=== PATIENT | female | born 1995 | race Caucasian/White ===

== ENCOUNTER 2017-04-02 12:35 | Emergency (ER) | payer OTHER ==
[~2017-04-02] VITALS: Ht 167.6 cm; Wt 68.2 kg
[2017-04-02 12:40] VITALS: TEMP 98
[2017-04-02] MEDS ORDERED: SPRINTEC 35 MCG1 TAB PO (12:43)
[2017-04-02 13:29] LABS: PH 6 (5-8); URINE APPEARANCE Cloudy; URINE BACTERIA None Seen /hpf; URINE BILIRUBIN Negative (NEGATIVE); URINE BLOOD 3+ (NEGATIVE); URINE COLOR Yellow; URINE GLUCOSE Negative (NEGATIVE); URINE KETONE Negative (NEGATIVE); URINE RBC >50 /hpf; URINE UROBILINOGEN Negative (NEGATIVE); URINE WBC None Seen /hpf
[2017-04-02 13:36] LABS: BASO % 0.8 % (0.0-2.0); EOS % 0.8 % (0-4.0); GRAN # 3.1 (1.4-6.5); GRAN % 59.2 % (42.2-75.2); HEMATOCRIT 42.1 % (37.0-47.0); HEMOGLOBIN 13.4 g/dl (12.5-16.0); LYMPH # 1.7 (1.2-3.4); LYMPH % 33.1 % (20.0-51.0); MEAN CELL VOLUME 87 fl (80.0-100.0); MEAN CORPUSCULAR HEMOGLOBIN 28 pg (27.0-31.0); MEAN CORPUSCULAR HGB CONC 32 g/dl (33.0-37.0); MONO # 0.3 (0.1-0.6); MONO % 5.7 % (1.7-9.3); PLATELET COUNT 332 K/mm3 (130-400); RED BLOOD COUNT 4.83 M/mm3 (4.10-5.30); REDCELL DISTRIBUTION WIDTH-CV 13.6 % (11.5-14.5); WHITE BLOOD COUNT 5.3 K/mm3 (4.8-10.8)
[2017-04-02 13:48] LABS: ADJUSTED CALCIUM 9.4 mg/dL (8.4-10.2); ALBUMIN 4.4 gm/dL (3.5-5.0); BILIRUBIN,TOTAL 0.5 mg/dL (0.0-1.0); C-REACTIVE PROTEIN 1.3 mg/dL (0.0-0.9); CALCIUM 9.7 mg/dL (8.4-10.2); CREATININE, serum 0.8 mg/dL (0.52-1.25); POTASSIUM 3.8 mmol/L (3.4-5.0)
[2017-04-02] MEDS ORDERED: ZOFRAN ODT4 MG PO (15:46)
[2017-04-02] MEDS ORDERED: NORCO 325 MG-51 TAB PO (15:46)
[2017-04-02 16:34] VITALS: BP 110/64; PULSE 88
== END 2017-04-02 16:35 | disposition home or self-care (01) ==
LOC: COL.ER 12:35
PROVIDERS: Physician Assistant
DX: R10.31 Right lower quadrant pain (principal); R10.11 Right upper quadrant pain
CPT/HCPCS: J1170; J1885; J2060; J2270; J2405; J7030; Q9967

== ENCOUNTER 2017-07-25 11:26 | Inpatient (IN) | payer OTHER ==
[~2017-07-25] VITALS: Ht 167.6 cm; Wt 71.2 kg
[~2017-07-25 11:26] MED LIST: NORCO 325 MG-51 TAB PO; SPRINTEC 35 MCG1 TAB PO; ZOFRAN ODT4 MG PO
[2017-07-25 13:13] LABS: BASO % 0.3 % (0.0-2.0); EOS # 0.1 (0.0-0.7); EOS % 1.1 % (0-4.0); GRAN # 5.4 (1.4-6.5); GRAN % 74.8 % (42.2-75.2); HEMATOCRIT 42.9 % (37.0-47.0); LYMPH # 1.2 (1.2-3.4); LYMPH % 16.9 % (20.0-51.0); MEAN CELL VOLUME 86 fl (80.0-100.0); MEAN CORPUSCULAR HEMOGLOBIN 28 pg (27.0-31.0); MEAN CORPUSCULAR HGB CONC 33 g/dl (33.0-37.0); MEAN PLATELET VOLUME 9.5 fl (7.4-10.4); MONO # 0.5 (0.1-0.6); MONO % 6.5 % (1.7-9.3); PLATELET COUNT 270 K/mm3 (130-400); RED BLOOD COUNT 5.02 M/mm3 (4.10-5.30); REDCELL DISTRIBUTION WIDTH-CV 14.7 % (11.5-14.5)
[2017-07-25 13:35] LABS: ALBUMIN 4.6 gm/dL (3.5-5.0); BILIRUBIN,TOTAL 0.5 mg/dL (0.0-1.0); CALCIUM 9.9 mg/dL (8.4-10.2); CREATININE, serum 0.92 mg/dL (0.52-1.25); POTASSIUM 3.9 mmol/L (3.4-5.0); TOTAL PROTEIN 8.1 gm/dL (6.4-8.2)
[2017-07-25 14:45] LABS: INR 1.1 (0.8-3.0); PROTHROMBIN TIME 12.6 SECONDS (9.7-12.8)
[2017-07-25 14:48] LABS: PARTIAL THROMBOPLASTIN TIME 28.7 SECONDS (26.0-37.0)
[2017-07-25 16:18] VITALS: BP 116/62; PULSE 93; TEMP 98.3
[2017-07-25 19:41] VITALS: BP 120/49; PULSE 104; TEMP 98.5
[2017-07-26] VITALS (7 sets, daily range): BP systolic 102–124; BP diastolic 50–72; PULSE 67–101; TEMP 97.5–98.5
[2017-07-27 05:08] VITALS: BP 117/61; PULSE 85; TEMP 98.3
[2017-07-27 06:53] LABS: MEAN CELL VOLUME 85 fl (80.0-100.0); MEAN CORPUSCULAR HGB CONC 34 g/dl (33.0-37.0); MEAN PLATELET VOLUME 9.4 fl (7.4-10.4); PLATELET COUNT 198 K/mm3 (130-400); RED BLOOD COUNT 3.72 M/mm3 (4.10-5.30); REDCELL DISTRIBUTION WIDTH-CV 14.9 % (11.5-14.5)
[2017-07-27 06:54] LABS: HEMATOCRIT 31.7 % (37.0-47.0); HEMOGLOBIN 10.7 g/dl (12.5-16.0); MEAN CORPUSCULAR HEMOGLOBIN 29 pg (27.0-31.0)
[2017-07-27 08:25] VITALS: BP 120/57; PULSE 80; TEMP 98.6
[2017-07-27 11:24] VITALS: BP 119/60; PULSE 81; TEMP 98.4
[2017-07-27 15:27] VITALS: BP 112/59; PULSE 80; TEMP 98.3
[2017-07-27 20:38] VITALS: BP 124/56; PULSE 78; TEMP 98.6
[2017-07-28] VITALS (18 sets, daily range): BP systolic 107–139; BP diastolic 45–98; PULSE 63–105; TEMP 97–98.7
[2017-07-28 02:17] LABS: BASO % 0.8 % (0.0-2.0); EOS # 0.2 (0.0-0.7); EOS % 3.2 % (0-4.0); GRAN # 2.4 (1.4-6.5); GRAN % 47.8 % (42.2-75.2); HEMATOCRIT 33.5 % (37.0-47.0); HEMOGLOBIN 10.9 g/dl (12.5-16.0); LYMPH # 1.9 (1.2-3.4); LYMPH % 38.2 % (20.0-51.0); MEAN CELL VOLUME 86 fl (80.0-100.0); MEAN CORPUSCULAR HEMOGLOBIN 28 pg (27.0-31.0); MEAN CORPUSCULAR HGB CONC 33 g/dl (33.0-37.0); MEAN PLATELET VOLUME 9.3 fl (7.4-10.4); MONO # 0.5 (0.1-0.6); MONO % 9.6 % (1.7-9.3); PLATELET COUNT 205 K/mm3 (130-400); RED BLOOD COUNT 3.91 M/mm3 (4.10-5.30); REDCELL DISTRIBUTION WIDTH-CV 14.8 % (11.5-14.5)
[2017-07-28 02:21] LABS: INR 1.1 (0.8-3.0); PROTHROMBIN TIME 12.5 SECONDS (9.7-12.8)
[2017-07-28 02:23] LABS: CALCIUM 8.9 mg/dL (8.4-10.2); CREATININE, serum 0.78 mg/dL (0.52-1.25); PARTIAL THROMBOPLASTIN TIME 88.4 SECONDS (26.0-37.0); POTASSIUM 3.4 mmol/L (3.4-5.0)
[2017-07-29 02:51] VITALS: BP 127/63; PULSE 84; TEMP 98.3
[2017-07-29 06:30] LABS: BASO % 0.7 % (0.0-2.0); EOS # 0.1 (0.0-0.7); EOS % 3.1 % (0-4.0); GRAN # 2.7 (1.4-6.5); GRAN % 59.8 % (42.2-75.2); LYMPH # 1.2 (1.2-3.4); LYMPH % 26.2 % (20.0-51.0); MEAN CELL VOLUME 85 fl (80.0-100.0); MEAN CORPUSCULAR HGB CONC 33 g/dl (33.0-37.0); MEAN PLATELET VOLUME 9.5 fl (7.4-10.4); MONO # 0.4 (0.1-0.6); MONO % 9.8 % (1.7-9.3); PLATELET COUNT 180 K/mm3 (130-400); REDCELL DISTRIBUTION WIDTH-CV 14.7 % (11.5-14.5)
[2017-07-29 06:35] LABS: HEMATOCRIT 32.3 % (37.0-47.0); HEMOGLOBIN 10.5 g/dl (12.5-16.0); MEAN CORPUSCULAR HEMOGLOBIN 28 pg (27.0-31.0)
[2017-07-29 06:51] LABS: CALCIUM 8.4 mg/dL (8.4-10.2); CREATININE, serum 0.83 mg/dL (0.52-1.25); POTASSIUM 3.6 mmol/L (3.4-5.0)
[2017-07-29 08:34] VITALS: BP 122/55; PULSE 108; TEMP 97.7
[2017-07-29] MEDS ORDERED: ELIQUIS 5MG PO (08:35)
[2017-07-29] MEDS ORDERED: NORCO 325 MG-51 TAB PO (08:35)
[2017-07-29 12:09] VITALS: BP 113/56; PULSE 68; TEMP 98.6
[2017-07-30] MEDS ORDERED: TYLENOL 500MG500 MG PO (17:11)
== END 2017-07-29 14:23 | disposition home or self-care (01) | DRG 271 ==
LOC: COL.ER 11:26 → MEDICAL 14:39
PROVIDERS: Emergency Medicine; Family Medicine; Physician Assistant; Radiology Diagnostic Radiology
PROC: 04CD3ZZ Extirpation of Matter from Left Common Iliac Artery, Percutaneous Approach (ICD-10-PCS; principal; 2017-07-28)
PROC: 047J3ZZ Dilation of Left External Iliac Artery, Percutaneous Approach (ICD-10-PCS; 2017-07-28)
PROC: 047D3DZ Dilation of Left Common Iliac Artery with Intraluminal Device, Percutaneous Approach (ICD-10-PCS; 2017-07-28)
DX: I82.422 Acute embolism and thrombosis of left iliac vein (principal); I87.1 Compression of vein; F41.9 Anxiety disorder, unspecified; D64.9 Anemia, unspecified; R01.1 Cardiac murmur, unspecified
CPT/HCPCS: 99231-AI; 99232-AI; 99239; G0378; J1170; J1644; J1650; J2060; J2250; J2405; J2704; J2765; J2997; J3010; J7030; J7120; Q9967

== ENCOUNTER → 2017-07-30 | Emergency (ER) | payer OTHER ==
[~2017-07-30] VITALS: Ht 167.6 cm; Wt 72.3 kg
[~2017-07-30] MED LIST changes: +ELIQUIS 5MG PO; +TYLENOL 500MG500 MG PO
[2017-07-30 16:32] LABS: BASO % 0.4 % (0.0-2.0); EOS # 0.2 (0.0-0.7); EOS % 2.6 % (0-4.0); GRAN # 1.9 (1.4-6.5); LYMPH # 4.4 (1.2-3.4); LYMPH % 62.5 % (20.0-51.0); MEAN CORPUSCULAR HGB CONC 31 g/dl (33.0-37.0); MEAN PLATELET VOLUME 9.3 fl (7.4-10.4); MONO # 0.4 (0.1-0.6); MONO % 6.1 % (1.7-9.3); PLATELET COUNT 250 K/mm3 (130-400); RED BLOOD COUNT 3.68 M/mm3 (4.10-5.30); REDCELL DISTRIBUTION WIDTH-CV 14.5 % (11.5-14.5)
[2017-07-30 16:38] LABS: HEMATOCRIT 33.2 % (37.0-47.0); HEMOGLOBIN 10.4 g/dl (12.5-16.0); MEAN CELL VOLUME 90 fl (80.0-100.0); MEAN CORPUSCULAR HEMOGLOBIN 28 pg (27.0-31.0)
[2017-07-30 16:42] LABS: ALANINE AMINOTRANSFERASE 238 U/L (9-52); ALBUMIN 2.9 gm/dL (3.5-5.0); ALKALINE PHOSPHATASE 109 U/L (50-136); ANION GAP 15 mmol/L (7-16); AST,SGOT 294 U/L (15-37); BILIRUBIN,TOTAL 0.2 mg/dL (0.0-1.0); BLOOD UREA NITROGEN 9 mg/dL (7-17); CALCIUM 8.1 mg/dL (8.4-10.2); CARBON DIOXIDE 18 mmol/L (22-30); CHLORIDE 106 mmol/L (98-107); CREATININE, serum 1.02 mg/dL (0.52-1.25); GLUCOSE 240 mg/dL (74-106); LIPASE 188 U/L (23-300); SODIUM 139 mmol/L (137-145); TOTAL PROTEIN 5.6 gm/dL (6.4-8.2)
[2017-07-30 16:44] LABS: ALCOHOL(ethanol),MEDICAL < 10 mg/dL; POTASSIUM 2.9 mmol/L (3.4-5.0)
[2017-07-30 16:45] LABS: INR 1.3 (0.8-3.0)
[2017-07-30 17:26] LABS: COLLECTION METHOD CLEAN CATCH
[2017-07-30 17:32] LABS: PH 7 (5-8); SQUAMOUS EPITHELIAL 0-2 /hpf; URINE APPEARANCE Clear; URINE BACTERIA None Seen /hpf; URINE BILIRUBIN Negative (NEGATIVE); URINE BLOOD 2+ (NEGATIVE); URINE COLOR Straw; URINE GLUCOSE 1+ (NEGATIVE); URINE KETONE Negative (NEGATIVE); URINE LEUKOCYTE ESTERASE Negative (NEGATIVE); URINE NITRATE Negative (NEGATIVE); URINE PROTEIN(semi-quant) 2+ (NEGATIVE); URINE RBC 0-2 /hpf; URINE UROBILINOGEN Negative (NEGATIVE)
[2017-07-30 17:44] LABS: TRICYCLIC ANTIDEPRESS URINE NEGATIVE
[2017-07-30 18:38] LABS: ARTERIAL BLD GAS O2 SATURATION 98.3 % (92-100); ARTERIAL BLD GAS TCO2 CT 15.8; ARTERIAL BLOOD GAS BASE EXCESS -10.2 (-2-2); ARTERIAL BLOOD GAS HCO3 14.9 meq/L (22-26); ARTERIAL BLOOD GAS PCO2 30.4 mmHg (35-45); ARTERIAL BLOOD GAS PO2 202.3 mmHg (80-100); ARTERIAL BLOOD GAS pH 7.31 (7.35-7.45)
[2017-07-30 19:23] VITALS: BP 91/57; PULSE 144; TEMP 96.8
== END ==
LOC: COL.ER 16:11
PROVIDERS: Emergency Medicine
DX: S36.113A Laceration of liver, unspecified degree, initial encounter (principal); I26.99 Other pulmonary embolism without acute cor pulmonale; R55 Syncope and collapse; Z86.718 Personal history of other venous thrombosis and embolism
CPT/HCPCS: J3010; J7030; J7050; J7060; P9016; Q9967